=== PATIENT | female | born 1995 | race Caucasian/White ===

== ENCOUNTER 2018-07-14 06:26 | Inpatient (IN) | payer OTHER ==
[2018-07-14] MEDS ORDERED: Fentanyl 100 MCG/2 ML VIAL ONE (06:45)
[2018-07-14] MEDS ORDERED: Oxytocin 10 UNITS/ML VIAL ONE (06:45)
[2018-07-14] MEDS: Lactated Ringer's 1,000 ML IV SCH ×2 (06:45→20:09)
[2018-07-14] MEDS ORDERED: Bupivacaine 0.75% W/DEXTROSE 8.25% 2 ML AMP ONE ×2 (06:46→07:29)
[2018-07-14] MEDS ORDERED: Ondansetron HCl/PF 4 MG/2 ML Vial ONE (06:48)
[2018-07-14] MEDS ORDERED: Succinylcholine Chloride 20 MG/ML 10 ml SYRINGE FS ONE (06:48)
[2018-07-14] MEDS ORDERED: Ketorolac Tromethamine 30 MG/ML VIAL ONE ×2 (06:48→15:13)
[2018-07-14] MEDS ORDERED: PHENYLEPHRINE-NS 100 MCG/ML 10 ML SYRINGE ONE ×2 (06:48→15:13)
[2018-07-14] MEDS ORDERED: Morphine PF 1 MG/ML SYR ONE (06:50)
[2018-07-14] MEDS ORDERED: ePHEDrine/0.9% NaCl/PF SYRINGE 50 mg/10 ml ONE ×4 (06:51→15:13)
[2018-07-14] MEDS ORDERED: CEFAZOLIN/Water 2 GM/20 ML SYRINGE ONE (07:04)
[2018-07-14] MEDS ORDERED: Bicitra 30 ML UDCUP ONE (07:04)
[2018-07-14] MEDS ORDERED: Ondansetron HCl/PF 4 MG/2 ML Vial IVP PRN ×2 (07:10→09:29)
[2018-07-14] MEDS ORDERED: Butorphanol Tartrate 1 MG/ML VIAL SLOW IVP PRN ×2 (07:10→21:30)
[2018-07-14] MEDS ORDERED: Promethazine HCl 25 MG/ML VIAL IM PRN ×2 (07:10→09:29)
[2018-07-14] MEDS ORDERED: Acetaminophen 500 MG TAB PO PRN (07:10)
[2018-07-14 07:13] VITALS: BMI 37.3
[2018-07-14] MEDS ORDERED: CEFAZOLIN/Water 2 GM/20 ML SYRINGE SLOW IVP SCH (07:15)
[2018-07-14] MEDS ORDERED: Bicitra 30 ML UDCUP PO SCH (07:15)
[2018-07-14] MEDS ORDERED: Lidocaine 2% PF Inj 2 ML VIAL ONE ×2 (07:33→07:34)
[2018-07-14 07:40] LABS: Hemoglobin 11.3 g/dL (12.0-16.0); Mean Corpuscular HGB CONC 33.5 g/dL (32.0-36.0); Mean Corpuscular Hemoglobin 30.3 pg (27.0-31.0); Mean Corpuscular Volume 90.6 fL (78.0-98.0); Mean Platelet Volume 8.7 fL (7.4-10.4); Platelet Count 173 thou/uL (130-400); RBC Distribution Width 12.7 % (11.5-14.5); Red Blood Cell (RBC) Count 3.72 mill/uL (4.20-5.40); White Blood Cell (WBC) Count 10.7 thou/uL (4.8-10.8)
[2018-07-14 08:22] LABS: Syphilis Antibody Nonreactive (Nonreactive); Syphilis Antibody Index 0.05 S/CO (<1.00 Non-Reactive)
[2018-07-14 08:23] LABS: HBSAg Index 0.23 S/CO (0-0.99); Hep B Surf Ag Non-Reactive S/CO (NonReactive)
[2018-07-14] MEDS ORDERED: Naloxone HCl 0.4 mg/ml Vial IV PRN (09:29)
[2018-07-14] MEDS ORDERED: Eucerin (Mineral Oil/Petrolatum,White) 30 gm Jar TOP PRN (09:29)
[2018-07-14] MEDS ORDERED: Promethazine HCl 25 MG SUPP PR PRN (09:29)
[2018-07-14] MEDS ORDERED: Naloxone HCl 0.4 mg/ml Vial IVP PRN ×2 (09:29)
[2018-07-14] MEDS ORDERED: diphenhydrAMINE 50 MG/ML VIAL IVP PRN (09:29)
[2018-07-14] MEDS ORDERED: Communication Order-Pharmacy FS SCH (09:30)
--- NOTE | 2018-07-14 09:43 | OP ---
DATE OF PROCEDURE: 07/14/2018 PREOPERATIVE DIAGNOSES: 1. Term . 2. Prior section. 3. Rh negative. POSTOPERATIVE DIAGNOSES: 1. Term . 2. Prior section. 3. Rh negative. PROCEDURE: Repeat low transverse section. SURGEON: Musa Dunlap M.D. SENIOR TELECOMMUNICATIONS CONSULTANT: Dr. Iraida Funes ANESTHESIA: Spinal. PROCEDURE: This is a 22-year-old white female, , taken to the operating room. She was placed i n supine position. The abdomen was prepped and draped sterilely. Pfannenstiel incision was made ove r the previous scar. Subcutaneous was dissected down to fascia. Fascia was opened without incident. Peritoneum was opened by blunt dissection. Bladder blade was placed. Low transverse uterine incis ion was made. Fluid was noted to be clear. Delivered the baby from a vertex presentation. The baby did breathe and cry vigorously upon delivery. Delivered the placenta manually intact. Cervix was d ilated. Uterus was closed in 1 layer of #1 Monocryl. Minimal bleeding. The abdomen was evacuated o f all clots. Peritoneum was closed with 2-0 chromic. The fascia with 0 Vicryl and the skin was clos ed with anna. Estimated blood loss was less than 700 mL.
--- NOTE | 2018-07-14 09:54 | HP ---
This is a 22-year-old white female. I previously dictated this H and P. If you find the first one t hen you can delete this H and P. . HISTORY OF PRESENT ILLNESS: This is a 22-year-old white female, G4, P1 at 39 weeks gestation with ED C of 07/20/2018, followed by Dr. Funes in the office. She has had a history of 1 prior secti on without complication. This course has been uncomplicated. No complaints of contractions , nausea, vomiting, fever, or leakage of fluid. PAST MEDICAL HISTORY: Unremarkable. PAST SURGICAL HISTORY: Past surgeries include x1 in 04/2017. FAMILY HISTORY: Positive for diabetes, heart disease, and cancer. SOCIAL HISTORY: She is a former smoker, quit in 2015. She is . She has 1 daughter. REVIEW OF SYSTEMS: As above. PHYSICAL EXAMINATION: VITAL SIGNS: Stable, afebrile. LUNGS: Clear. HEART: Clear. LUNGS: Clear. ABDOMEN: Gravid. EXTREMITIES: With no edema. LABORATORY AND X-RAY FINDINGS: She is O negative. RhoGAM has been given. Rubella immune. Urine cu lture negative, RPR nonreactive, hepatitis B negative. HIV negative. Thyroid normal. One-hour GCT normal. GBS negative. Ultrasound on 02/21/2018 showed a posterior placenta. ASSESSMENT: 1. A 39-week intrauterine . 2. Prior section. 3. O negative, RhoGAM given. PLAN: 1. Routine L and D orders. 2. Routine anesthesia orders. 3. Plan repeat low-transverse section.
[2018-07-14] MEDS ORDERED: Adacel (T-DAP) 0.5 ML VIAL IM ONE (11:02)
[2018-07-14] MEDS ORDERED: Methylergonovine 0.2 MG/ML VIAL IM PRN (11:02)
[2018-07-14] MEDS ORDERED: Lanolin Ointment 7 GM TUBE TOP PRN (11:02)
[2018-07-14] MEDS ORDERED: NS / Oxytocin 40 units/1000ml 1,000 ML IV SCH (11:02)
[2018-07-14] MEDS ORDERED: Acetaminophen 325 MG TAB PO PRN (11:02)
[2018-07-14] MEDS ORDERED: Misoprostol 200 MCG TAB PR PRN (11:02)
[2018-07-14] MEDS: Prenatal Vitamin 1 TAB PO SCH (12:01)
[2018-07-14] MEDS: Ferrous Sulfate 325 MG TAB PO SCH ×2 (12:01→23:48)
[2018-07-14] MEDS: Ketorolac Tromethamine 30 MG/ML VIAL IVP PRN ×3 (12:03→23:47)
[2018-07-15 06:09] LABS: Hemoglobin 9.5 g/dL (12.0-16.0); Mean Corpuscular HGB CONC 33.6 g/dL (32.0-36.0); Mean Corpuscular Hemoglobin 30.5 pg (27.0-31.0); Mean Corpuscular Volume 90.8 fL (78.0-98.0); Mean Platelet Volume 8.2 fL (7.4-10.4); Platelet Count 137 thou/uL (130-400); Red Blood Cell (RBC) Count 3.11 mill/uL (4.20-5.40); White Blood Cell (WBC) Count 12.6 thou/uL (4.8-10.8)
[2018-07-15] MEDS: Ibuprofen 800 MG TAB PO SCH ×3 (08:00→22:19)
[2018-07-15] MEDS: HYDROcodone/Acetaminophen 5/325 mg Tablet PO PRN ×4 (08:00→22:19)
[2018-07-15] MEDS: Prenatal Vitamin 1 TAB PO SCH (08:01)
[2018-07-15] MEDS: Ferrous Sulfate 325 MG TAB PO SCH ×2 (08:01→22:20)
--- NOTE | 2018-07-15 11:24 | PDOC.PP ---
Post Progress Note Post Day #: 1 Subjective: Doing well. No c/o. Ambulating. Pain controlled. BF well. PO intake tolerated: yes Flatus: yes Ambulation: yes Vital Signs (12 hours) Temp Pulse Resp BP 07/15/18 08:00 98.5 F 93 20 103/60 07/15/18 07:45 98.5 F 93 20 07/15/18 04:35 98.2 F 98 18 98/52 L 07/15/18 04:00 98.6 F 100 20 07/15/18 00:20 97.8 F 101 H 18 100/52 L 07/15/18 00:00 98.6 F 100 20 Weight Weight 204 lb - Physical Examination General: NAD Cardiovascular: no m/r/g, RRR Respiratory: clear to auscultation bilaterally, non-labored breathing Abdominal: + bowel sounds, lochia, no distention, appropriately TTP Skin: CS incision dry & intact, no rash Psychiatric: A&Ox3, normal affect Result Diagrams: 07/15/18 05:49 Additional Labs: Post Labs Blood Type O NEGATIVE 07/14/18 06:52 Hep Bs Antigen Non-Reactive S/CO (NonReactive) 07/14/18 06:52 (1) delivery, delivered, current hospitalization Code(s): O82 - ENCOUNTER FOR DELIVERY WITHOUT INDICATION Status: Acute - Assessment/Plan Routine PP care Pt requesting D/C tomorrow if all goes well today
[2018-07-16] MEDS: HYDROcodone/Acetaminophen 5/325 mg Tablet PO PRN ×4 (03:25→23:36)
[2018-07-16] MEDS: Ferrous Sulfate 325 MG TAB PO SCH ×2 (08:40→21:43)
[2018-07-16] MEDS: Prenatal Vitamin 1 TAB PO SCH (08:40)
--- NOTE | 2018-07-16 12:07 | PDOC.PP ---
Post Progress Note Post Day #: 2 Subjective: Pain OK. Not ambulating well. Having a little trouble getting in and out of bed. Wants to stay another day. PO intake tolerated: yes Flatus: yes Ambulation: yes Vital Signs (12 hours) Temp Pulse Resp BP Pulse Ox 07/16/18 09:21 98.1 F 97 18 106/65 80 L 07/16/18 08:40 98.1 F 80 16 97 Weight Weight 204 lb - Physical Examination General: NAD Cardiovascular: no m/r/g, RRR Respiratory: clear to auscultation bilaterally, non-labored breathing Abdominal: + bowel sounds, lochia, no distention, appropriately TTP Skin: CS incision dry & intact, no rash Psychiatric: A&Ox3, normal affect Result Diagrams: 07/15/18 05:49 Additional Labs: Post Labs Blood Type O NEGATIVE 07/14/18 06:52 Hep Bs Antigen Non-Reactive S/CO (NonReactive) 07/14/18 06:52 (1) delivery, delivered, current hospitalization Code(s): O82 - ENCOUNTER FOR DELIVERY WITHOUT INDICATION Status: Acute - Assessment/Plan Routine PP care Ambulate today Stool softener D/C home tomorrow
[2018-07-16] MEDS: Ibuprofen 800 MG TAB PO SCH ×2 (13:19→21:45)
[2018-07-16 21:34] VITALS: TEMP 98.2
[2018-07-17] MEDS: Ibuprofen 800 MG TAB PO SCH ×4 (05:32→13:10)
[2018-07-17 08:47] VITALS: BP 105/68
[2018-07-17] MEDS: Prenatal Vitamin 1 TAB PO SCH (09:29)
[2018-07-17] MEDS: Ferrous Sulfate 325 MG TAB PO SCH (09:29)
--- NOTE | 2018-07-17 11:25 | PDOC.PP ---
Post Progress Note Post Day #: 3 Subjective: Doing better with pain control and ambulation. Still sore but managable PO intake tolerated: yes Flatus: yes Ambulation: yes Vital Signs (12 hours) Temp Pulse Resp BP 07/17/18 08:00 98.2 F 75 18 105/68 Weight Weight 204 lb - Physical Examination General: NAD Cardiovascular: no m/r/g, RRR Respiratory: clear to auscultation bilaterally, non-labored breathing Abdominal: + bowel sounds, lochia, no distention, appropriately TTP Skin: CS incision dry & intact, no rash Result Diagrams: 07/15/18 05:49 Additional Labs: Post Labs Blood Type O NEGATIVE 07/14/18 06:52 Hep Bs Antigen Non-Reactive S/CO (NonReactive) 07/14/18 06:52 (1) delivery, delivered, current hospitalization Code(s): O82 - ENCOUNTER FOR DELIVERY WITHOUT INDICATION Status: Acute - Assessment/Plan Routine care D/C home
[2018-07-17] MEDS: HYDROcodone/Acetaminophen 5/325 mg Tablet PO PRN (13:10)
== END 2018-07-17 15:45 | disposition home or self-care (01) | DRG 766 ==
LOC: L&D 06:26 → 3SW 10:49
PROVIDERS: ADMIT Family Medicine; ATTEND Family Medicine
PROC: 10D00Z1 Extraction of Products of Conception, Low, Open Approach (ICD-10-PCS; principal; 2018-07-14)
DX: O34.211 Maternal care for low transverse scar from previous cesarean delivery (principal); Z37.0 Single live birth; Z3A.39 39 weeks gestation of pregnancy; Z87.891 Personal history of nicotine dependence
CPT/HCPCS: 36415; 51702; 85027; 86780; 86850; 86900; 86901; 87340; J1885; J2270; J2274; J2405; J2590; J3010; J3490